=== PATIENT | female | born 1975 ===

== ENCOUNTER 2019-01-11 11:40 | Emergency (ER) | payer MEDICAID, OTHER ==
[2019-01-11 11:59] VITALS: BMI 29.0
--- NOTE | 2019-01-11 13:26 | ED PDOC ---
Lower Extremity Pain/Injury Time Seen by Provider: 01/11/19 12:09 Chief Complaint (Nursing): Lower Extremity Problem/Injury Chief Complaint (Provider): Left Ankle Injury History Per: Patient History/Exam Limitations: no limitations Onset/Duration Of Symptoms: Days Additional Complaint(s): 43 year old female presents to ED with left ankle injury since last night. Patient states she was stepping off train when she twisted ankle. She reports taking 1000 mg of extra strength Tylenol last night but did not take any medicine today. Patient cannot bear weight due to pain and is unable to move lef t foot or toes but denies any numbness or tingling. PMD: Shaik Quyen Past Medical History Reviewed: Historical Data, Nursing Documentation, Vital Signs Vital Signs: Last Vital Signs Temp 98.4 F 01/11/19 11:57 Pulse 84 01/11/19 11:57 Resp 16 01/11/19 11:57 BP 130/90 01/11/19 11:57 Pulse Ox 95 01/11/19 11:57 Primary Care Provider: Shaik Napier - Medical History PMH: No Chronic Diseases - Surgical History Surgical History: Tonsillectomy - Family History Family History: States: Unknown Family Hx (nmo significnat PFhx) - Social History Current smoker - smoking cessation education provided: Yes Alcohol: None Drugs: Denies - Immunization History Hx Tetanus Toxoid Vaccination: No Hx Influenza Vaccination: No Hx Pneumococcal Vaccination: No - Home Medications Home Medications: Ambulatory Orders Medication Instructions Recorded Naproxen [Naprosyn] 1 tab PO BID PRN #25 tab 03/06/14 Ibuprofen [Motrin Tab] 800 mg PO Q6 PRN 7 Days tab 01/11/19 - Allergies Allergies/Adverse Reactions: Allergies Allergy/AdvReac Type Severity Reaction Status Date / Time No Known Allergies Allergy Verified 01/11/19 12:01 Review of Systems ROS Statement: Except As Marked, All Systems Reviewed And Found Negative Musculoskeletal: Positive for: Foot Pain (unable to move left foot or toes), Other (left ankle injury, cannot bear weight due to pain) Neurological: Negative for: Numbness (or tingling) Physical Exam - Reviewed Nursing Documentation Reviewed: Yes Vital Signs Reviewed: Yes - Physical Exam Appears: Positive for: Uncomfortable Pulses-Dorsalis Pedis (L): 2+ Extremity: Positive for: Tenderness (left ankle tenderness at lateral malleolus and heel), Capillary Refill (less than 2 seconds), Swelling (left ankle swelling at lateral malleolus and heel), Other (sensation to light touch intact, no erythema). Negative for: Normal ROM (decreased ROM with flexion and extension at left ankle, normal ROM at left knee), Deformity Neurological/Psych: Positive for: Alert, Oriented (x3) - ECG O2 Sat by Pulse Oximetry: 95 (RA) Pulse Ox Interpretation: Normal Medical Decision Making Medical Decision Making: Time: 1311 Initial Impression: Initial Plan: --Toradol 30 mg IM x1 --Left ankle and foot Xray 1305 Foot Xray FINDINGS: BONES: No evidence of acute displaced fracture nor dislocation.. Small plantar and tiny posterior calcaneal enthesophytes present JOINTS: Normal. SOFT TISSUES: Mild soft tissue swelling over the lateral malleolus seen to better advantage on concurrent radiographs of the ankle. OTHER FINDINGS: None. IMPRESSION: No evidence of acute displaced fracture nor dislocation. If symptoms persist or occult fracture suspected clinically consider repeat radiographs in 5-10 days as most fractures should become radiographically evident in this timeframe. 1308 FINDINGS: BONES: No evidence of acute displaced fracture nor dislocation. The osseous structures appear intact.. Small plantar and tiny posterior calcaneal enthesophytes are present. JOINTS: Ankle mortise maintained. SOFT TISSUES: There is mild soft tissue swelling over the lateral malleolus. OTHER FINDINGS: None. IMPRESSION: No acute fractures. Mild soft tissue swelling overlying the lateral malleolus 1345 Xrays reviewed by me, no acute fracture or abnormality discovered. Patient reevaluated and she remains unable to flex or extend at the ankle. Podiatry consult called [id number] Posterior leg splint applied and crutches provided to patient. She is to follow up with Dr Boswell in 1 week. Patient is medically stable and ready for discharge. Scribe Attestation: Documented by Fazal Leigh, acting as a scribe for Zahra Murphy PA-C Provider Scribe Attestation: All medical record entries made by the Scribe were at my direction and personally dictated by me. I have reviewed the chart and agree that the record accurately reflects my personal performance of the history, physical exam, medical decision making, and the department course for this patient. I have also personally directed, reviewed, and agree with the discharge instructions and disposition. Disposition - Clinical Impression Clinical Impression: Left ankle sprain - Disposition Referrals: hSawn Boswell III, MD [Staff Provider] - Disposition Time: 14:50 Condition: STABLE Additional Instructions: Follow up with Dr. Boswell (orthopedist) in one week for re-evaluation of ankle. Take Ibuprofen or Tylenol for pain. Use crutches for support until you are able to bear weight on the ankle. Rest and elevate your ankle for the next couple of days. Return to ER if your pain worsens. Prescriptions: Ibuprofen [Motrin Tab] 800 mg PO Q6 PRN 7 Days tab PRN Reason: Pain, Moderate (4-7) Instructions: Ankle Sprain (DC) Forms: [employer] (Lao) Print Language: CROATIAN
--- NOTE | 2019-01-11 14:26 | RAD ---
Date of service: 01/11/2019 PROCEDURE: Left Ankle Radiographs. HISTORY: twisted Left ankle, + swelling and pain COMPARISON: Comparison made with concurrent radiographs of the left foot. TECHNIQUE: 3 views obtained. FINDINGS: BONES: No evidence of acute displaced fracture nor dislocation. The osseous structures appear intact.. Small plantar and tiny posterior calcaneal enthesophytes are present. JOINTS: Ankle mortise maintained. SOFT TISSUES: There is mild soft tissue swelling over the lateral malleolus. OTHER FINDINGS: None. IMPRESSION: No acute fractures. Mild soft tissue swelling overlying the lateral malleolus
--- NOTE | 2019-01-11 14:27 | RAD ---
Date of service: 01/11/2019 PROCEDURE: Left Foot Radiographs. HISTORY: + heel pain on palpation, dec ROM at ankle COMPARISON: Correlation made with concurrent radiographs of the left ankle. TECHNIQUE: 3 views obtained. FINDINGS: BONES: No evidence of acute displaced fracture nor dislocation.. Small plantar and tiny posterior calcaneal enthesophytes present JOINTS: Normal. SOFT TISSUES: Mild soft tissue swelling over the lateral malleolus seen to better advantage on concurrent radiographs of the ankle. OTHER FINDINGS: None. IMPRESSION: No evidence of acute displaced fracture nor dislocation. If symptoms persist or occult fracture suspected clinically consider repeat radiographs in 5-10 days as most fractures should become radiographically evident in this timeframe.
[2019-01-11 15:03] VITALS: BP 121/63; PULSE 72; RESP 17; TEMP 98.1; O2SAT 98
--- NOTE | 2019-01-11 15:12 | CP.PCM.CON ---
History of Present Illness - History of Present Illness History of Present Illness: Consult note for attending Dr. Boswell: 43 year old female patient with no PMH seen and evaluated in ED for left ankle injury. Patient states that she [place] She states that she twisted her left ankle. She states that She immediately felt pain and had swelling in the outside of her left ankle. She states that she continued working in her shift. She states that today she has the pain 8/10 on V scale and she couldn't bear weight on her left LE. She states that the pain is in the outside of the ankle. Patient denies any tingling, numbness or burning sensation at her left LE. Patient denies any recent F/N/V/C/CP or SOB. She denies any other pedal complaint at this time. PMH: None PSH: Tonsillectomy. Allergies: NKDA. Social Hx: Denies smoking, EtOH use or illicit drug use. Review of Systems - Review of Systems Review of Systems: As per HPI - Constitutional Constitutional: As Per HPI Past Patient History - Past Social History Alcohol: None Drugs: Denies - PSYCHIATRIC Hx Psychophysiologic Disorder: No Hx Substance Use: No - SURGICAL HISTORY Hx Tonsillectomy: Yes - ANESTHESIA Hx Anesthesia: Yes Hx Anesthesia Reactions: No Meds Home Medications: Home Medication List Medication Instructions Recorded Confirmed Type Ibuprofen [Motrin Tab] 800 mg PO Q6 PRN 7 Days tab 01/11/19 Rx Allergies/Adverse Reactions: Allergies Allergy/AdvReac Type Severity Reaction Status Date / Time No Known Allergies Allergy Verified 01/11/19 12:01 Physical Exam - Constitutional Appears: Well, Non-toxic, No Acute Distress - Head Exam Head Exam: ATRAUMATIC, NORMOCEPHALIC - Extremities Exam Additional comments: Left lower extremity focused exam: Vascular: DP/PT 2/4, Cap refill < 3 seconds, Temp gradient warm to cool from proximal to distal, Moderate non pitting edema appreciated to lateral perimalleolar area. Neuro: Gross and protective sensation intact. Derm: No open lesions . no clinical signs of infection appreciated. MSK: Pain with palpation of the lateral perimallolar area, Pain with eversion and ankle dorsiflexion. MMT 5/5 to all groups. - Neurological Exam Neurological exam: Alert, Normal Gait - Psychiatric Exam Psychiatric exam: Normal Affect, Normal Mood Results - Vital Signs Recent Vital Signs: Last Vital Signs Temp 98.4 F 01/11/19 11:57 Pulse 84 01/11/19 11:57 Resp 16 01/11/19 11:57 BP 130/90 01/11/19 11:57 Pulse Ox 95 01/11/19 14:50 Assessment & Plan - Assessment and Plan (Free Text) Assessment: 43 year old female patient with no PMH seen and evaluated in ED for left ankle injury. Plan: Patient seen and evaluated Discussed with attending, Dr Boswell. X-ray left ankle reviewed: No evidence of acute displaced fracture or dislocation, Soft tissue swelling present X-ray left foot reviewed: No evidence of acute displaced fracture or dislocation. Discussed X-ray results with the patient. Applied Bi-valved short leg cast to the LLE Patient instructed to keep the cast C/D/I Patient instructed to stay NWB to the LLE and to ambulate using crutches. Patient educated RICE protocol and instructed to do it. Patient expressed verbal understanding Patient instructed to use OTC NSAID for pain and swelling. Patient to follow up with Dr Boswell at his office within one week Thank you for the consult - Date & Time Date: 01/11/19 Time: 14:59
== END 2019-01-11 15:00 | disposition home or self-care (01) ==
LOC: H.ER 11:40
DX: S93.402A Sprain of unspecified ligament of left ankle, initial encounter (principal); X50.9XXA Other and unspecified overexertion or strenuous movements or postures, initial encounter; Y92.89 Other specified places as the place of occurrence of the external cause
CPT/HCPCS: 29515; 73610; 73630; 81025; 96372; 99283; J1885